=== PATIENT | male | born 1985 | race African-American/Black ===

== ENCOUNTER 2017-06-30 13:17 | Emergency (ER) | payer BC, SELFPAY ==
--- NOTE | 2017-06-30 14:08 | RAD ---
RIGHT FINGER 3 VIEWS: Date: 06/30/17 HISTORY: Injury, right finger pain. FINDINGS/IMPRESSION: There is a healed fracture of the distal phalanx. No acute fracture or dislocation is seen. POS: OFF
== END 2017-06-30 14:30 | disposition home or self-care (01) ==
LOC: ERS 13:17
DX: L03.011 Cellulitis of right finger (principal)
CPT/HCPCS: 10060; 87070; 87076; 87205

== ENCOUNTER 2018-02-06 17:59 | Inpatient (IN) | payer BC, SELFPAY ==
[~2018-02-06 17:59] MED LIST: ISOVUE-370 76%-LOCM 1 ML ONE
[2018-02-06] MEDS ORDERED: HYDROcodone/Acetaminophen 5/325 mg Tablet ONE (18:56)
[2018-02-06 18:57] LABS: Hemoglobin 13.7 g/dL (14.0-18.0); Mean Corpuscular HGB CONC 32.6 g/dL (32.0-36.0); Mean Corpuscular Hemoglobin 32.2 pg (27.0-31.0); Mean Corpuscular Volume 98.5 fL (78.0-98.0); Mean Platelet Volume 7.7 fL (7.4-10.4); Platelet Count 173 thou/uL (130-400); RBC Distribution Width 10.7 % (11.5-14.5); Red Blood Cell (RBC) Count 4.25 mill/uL (4.70-6.10); White Blood Cell (WBC) Count 8.6 thou/uL (4.8-10.8)
[2018-02-06 19:17] LABS: Lymphocytes 6 % (21-51); MDiff Complete? YES; Monocytes 2 % (0-10); Neutrophil 92 % (42-75); PLT Morphology Comment Appears Adequate
[2018-02-06 19:19] LABS: ALT (SGPT) 13 U/L (8-55); AST (SGOT) 16 U/L (5-34); Albumin 4.1 g/dL (3.5-5.0); Alkaline Phosphatase 78 U/L (40-150); Anion Gap 12 mmol/L (10-20); BUN (Urea Nitrogen) 11 mg/dL (8.9-20.6); Bilirubin, Total 0.8 mg/dL (0.2-1.2); Calc. Creatinine Clearance 0 mL/min (70-130); Calcium 9.3 mg/dL (7.8-10.44); Carbon Dioxide 25 mmol/L (22-29); Chloride 104 mmol/L (98-107); Estimated GFR-MDRD Greater than 90; Globulin 3.2 g/dL (2.4-3.5); Glucose 91 mg/dL (70-105); Potassium 3.8 mmol/L (3.5-5.1); Protein, Total 7.3 g/dL (6.0-8.3); Sodium 137 mmol/L (136-145)
[2018-02-06] MEDS ORDERED: Lidocaine 1% (PF) 30 ML VIAL ONE (19:51)
[2018-02-06] MEDS ORDERED: Piperacillin/Tazobactam 4.5 GM VIAL ONE (19:51)
--- NOTE | 2018-02-06 20:39 | CT ---
CT NECK PERFORMED WITH CONTRAST ENHANCEMENT: HISTORY: Right neck abscess. FINDINGS: The visualized brain parenchyma is unremarkable. The epiglottis and vocal cord regions are normal. The thyroid gland is normal in appearance. The lung apices are clear. The parapharyngeal spaces and the tonsillar regions appear unremarkable. There is some air density seen deep to the angle of the right mandible. I believe this is related to the injection, as there is some air within the veins. There does appear to be some minimal air pres ent within the right subclavian vein. There is a superficial, thick-walled collection, measuring 2.3 x 4.1 cm in size. This is superficial and mainly deep to the right submandibular gland, not related to the submandibular gland. There is some evidence of dental disease within the right and left mandible region, but these changes appear r emote from this area, and I doubt these are related to underlying dental change. There is no air ass ociated with this thick-walled collection but, in this age group, abscess would still be the most lik ana consideration. IMPRESSION: Superficial, thick-walled, cystic collection in the superficial soft tissues, inferior to the right s urszula of the mandible, probably related to an abscess. POS: NATALIA
[2018-02-06] MEDS ORDERED: Morphine 4 MG/ML VIAL ONE (21:20)
[2018-02-06] MEDS ORDERED: Ondansetron HCl/PF 4 MG/2 ML Vial ONE (21:20)
[2018-02-06] MEDS ORDERED: Ketorolac Tromethamine 30 MG/ML VIAL ONE (22:36)
[2018-02-06] MEDS ORDERED: Ondansetron HCl/PF 4 MG/2 ML Vial IVP PRN (23:49)
[2018-02-06] MEDS ORDERED: Acetaminophen 325 MG TAB PO PRN (23:49)
[2018-02-06] MEDS ORDERED: Ondansetron ODT 4 MG TAB SL PRN (23:49)
[2018-02-06 23:51] VITALS: BMI 24.3
[2018-02-07] MEDS ORDERED: VANCOMYCIN IVPB PRN (01:32)
[2018-02-07] MEDS: Piperacillin/Tazobactam 3.375 GM in Sodium Chloride 0.9% 100 ML IVPB SCH ×3 (05:09→17:07)
[2018-02-07] MEDS: Vancomycin HCl 1 GM in Premix Bag 1 BAG IVPB SCH ×2 (08:18→20:28)
[2018-02-07 08:46] LABS: #Lymphocytes 1.1 thou/uL (1.20-3.40); #Monocytes 0.6 thou/uL (0.11-0.59); #Neutrophils 6.5 thou/uL (1.40-6.50); %Basophils 0.2 % (0.0-1.0); %Eosinophils 0.1 % (0.0-10.0); %Monocytes 7.4 % (0.0-10.0); %Neutrophils 79.4 % (42.0-75.0); Hemoglobin 12.3 g/dL (14.0-18.0); Mean Corpuscular HGB CONC 32.1 g/dL (32.0-36.0); Mean Corpuscular Hemoglobin 31.8 pg (27.0-31.0); Mean Corpuscular Volume 98.8 fL (78.0-98.0); Mean Platelet Volume 7.3 fL (7.4-10.4); Platelet Count 140 thou/uL (130-400); RBC Distribution Width 10.6 % (11.5-14.5); Red Blood Cell (RBC) Count 3.87 mill/uL (4.70-6.10); White Blood Cell (WBC) Count 8.1 thou/uL (4.8-10.8)
[2018-02-07 09:01] LABS: Anion Gap 8 mmol/L (10-20); BUN (Urea Nitrogen) 7 mg/dL (8.9-20.6); Calc. Creatinine Clearance 106 mL/min (70-130); Calcium 8.4 mg/dL (7.8-10.44); Carbon Dioxide 25 mmol/L (22-29); Chloride 107 mmol/L (98-107); Estimated GFR-MDRD Greater than 90; Glucose 93 mg/dL (70-105); Potassium 4.1 mmol/L (3.5-5.1); Sodium 136 mmol/L (136-145)
[2018-02-07] MEDS: Ketorolac Tromethamine 30 MG/ML VIAL IVP PRN ×2 (09:40→18:23)
[2018-02-07] MEDS: Dextrose 5 %-0.45 % NaCl 1,000 ML IV SCH ×3 (11:52→20:35)
[2018-02-07] MEDS ORDERED: Lidocaine 1% w/Epinephrine 1:100K 30 ML VIAL NERVE BLCK SCH (12:15)
[2018-02-07] MEDS ORDERED: Lidocaine 1% w/Epinephrine 1:100K 20 ML VIAL NERVE BLCK SCH (12:45)
[2018-02-07] MEDS ORDERED: Morphine 4 MG/ML VIAL IV SCH (13:30)
[2018-02-07] MEDS ORDERED: Ketorolac Tromethamine 30 MG/ML VIAL IVP SCH (13:30)
--- NOTE | 2018-02-07 17:59 | CON ---
DATE OF CONSULTATION: 02/07/2018 CHIEF COMPLAINT: I am seeing Mr. Armenta in consultation at the request of Dr. Luong and Dr. Pantoja for evaluation and treatment of a neck abscess. HISTORY OF PRESENT ILLNESS: The patient is a 32-year-old man who has had about a 4- to 5-day history of progressively worsening right-sided neck swelling and pain. He was having fever and presented to the Emergency Department where a CT scan showed evidence of an abscess. An attempted aspiration was not very successful as far as alleviating the problem and given his tachycardia and fever , the patient was admitted to the telemetry unit. He has been placed on vancomycin and Zosyn. He complains of pain and swelling. He also says it feels like the throat is swelling a little bit. He denies any dentalgia. He denies any problems breathing. PAST MEDICAL HISTORY: He denies diabetes or history of recurring skin infections. PAST SURGICAL HISTORY: No ear, nose or throat surgery of any concern. SOCIAL HISTORY: He currently is employed at [employer] working on the line of [employer]. REVIEW OF SYSTEMS: He does have fevers and chills. He complains of neck pain and some pain with swallowing, but he denies any trismus. He denies any hoarseness. Respiratory: He denies cough or shortness of breath. Cardiac: He does complain of some tachycardia and palpitations, but no chest pain. Gastrointestinal: He denies vomiting or diarrhea. Hematologic: He denies easy bruising or bleeding or lymphadenopathy. Neurologic: He denies dizziness or vision changes. PHYSICAL EXAMINATION: GENERAL: The patient is a healthy-appearing man in no distress that is in good spirits. He speaks in [place]. HEENT: Head is normocephalic. The parotid glands are smooth. He does have normal submandibular glands. There is normal facial tone, although he does have a little swelling over the right jaw line. External ears and nose show no scars, lesions or masses. Ear canals are clear. Eardrums are within normal limits with no evidence of effusions or retraction pockets. Rhinoscopy reveals no pus or polyps. Turbinates and septum are normal. Oral cavity, lips are in good condition. He has got no trismus. Mucosa is pink and moist. He does have very poor dentition with multiple caries and some granulation tissue at the base of the nearly eroded teeth. I see or feel no palpable evidence of odontogenic abscess or submandibular space edema or swelling. The tongue is normal. The hard and soft palate are normal. Oropharynx mucosa is pink and moist and symmetrical. The uvula is not edematous. There is no erythema or exudates. NECK: He has a woody induration of the right submandibular region extending to the lower neck and posteriorly. He has got a large loculated area with a little bit of purulence able to be expressed out of the central necrotic portion. The trachea is midline. There is no stridor. LYMPHATIC: No cervical lymphadenopathy. LUNGS: Clear to auscultation bilaterally. HEART: regular rhythm, but he is tachycardic. IMAGING DATA: I reviewed the CT scan, which was performed in the neck yesterday and it does show multiloculated collection of inflammation and phlegmon and abscess in that right subcutaneous area. The airway otherwise is unremarkable. PROCEDURE NOTE: After discussing risks, benefits and my thoughts, the patient agreed to an incision and drainage of the abscess on the neck. Risks including infection, bleeding and need for further surgery and recurrence were discussed and the patient gave informed consent. The area was cleaned with alcohol and then he was injected with 20 mL of 1% lidocaine with 1:100,000 epinephrine. I allowed that to set for several minutes. I then used a 15 blade to make a linear incision overlying the fluctuant area in the neck and then it was about 2 cm in length. I then opened it up with a pair of hemostats and I expressed a considerable amount of pus. A sample was taken for culture and sensitivity. I then packed the wound with quarter inch iodoform gauze and then the patient had a wrapping of Kerlix gauze placed around for oozing. He tolerated the procedure well. IMPRESSION: Right-sided superficial neck abscess. PLAN: I agree with continuation of vancomycin and Zosyn. Wound care consult was initiated. Recommend IV antibiotics until systemic symptoms are improved. The patient may follow up with me as an outpatient as needed. KAREN
--- NOTE | 2018-02-07 21:05 | CON ---
DATE OF CONSULTATION: 02/07/2018 CONSULTING PHYSICIAN: Dr. Junior with the Hospitalist Service. HISTORY OF PRESENT ILLNESS: This is a 32-year-old male who reports a recent ingrown hair to the righ t neck region, which he noticed when he was shaving one day. The patient attempted multiple times to remove this ingrown hair, but was unsuccessful and subsequently developed swelling in the right neck region in the area of this ingrown hair. The patient denies any recent history of dental pain or pr oblems with the teeth or in the mouth. PAST MEDICAL HISTORY: None. PAST SURGICAL HISTORY: Negative. HOME MEDICATIONS: None. CURRENT MEDICINES IN THE HOSPITAL FROM AN ANTIBIOTIC PERSPECTIVE: Zosyn, vancomycin. ALLERGIES: No known drug allergies. REVIEW OF SYSTEMS: The patient denies any dental and mouth pain. The patient reports discomfort to the right neck region, an area of recent incision and drainage. PHYSICAL EXAMINATION: VITAL SIGNS: Blood pressure 121/68, temperature 98.6, heart rate 94, 97% oxygen saturation on room a ir. GENERAL: Alert and oriented x3, in no apparent distress. HEAD AND NECK: The patient has a gauze wrap to the neck and on retraction, there is an incision and drainage site in the right neck region with packing gauze tail from the area with purulosanguinous di scharge on the gauze and on the neck in the area. On examination of the oral cavity, the patient johnston s have a dental decay throughout the mouth with some retained roots in the number 29 region in the felipe ttom right. There is no vestibular erythema or edema on the buccal throughout the maxilla or mandibl e bilaterally. The floor of mouth is soft bilaterally without any signs of erythema or edema. The o ropharynx is within normal limits. Other than the chronic decay throughout the mouth, the oral exam is basically normal. LABORATORY DATA: CBC showed a white blood cell count of 8.1 down from 8.6 yesterday. Hemoglobin is 12.3, platelets of 140,000. On chemistry studies, glucose is 93. IMAGING: CT scan of the neck shows a fluid collection in the superficial tissues of the right neck, which appears to communicate to the epidermal region. There are no noted signs of tracking of the ab scess up towards the mandible. The abscess or fluid collection appears isolated to the subcutaneous and cutaneous structures of the right neck region. ASSESSMENT: Skin infection and abscess of the right neck secondary to ingrown hair. PLAN: 1. Dr. Sanchez with the Otolaryngology Service already performed a bedside incision and drainage and I agree with his assessment that this is a skin infection and not related to any odontogenic origin. I will defer continued care to Dr. Sanchez and the Hospitalist Service for continued medical management of the skin abscess. 2. I have counseled the patient on his widespread dental decay and the chance that this dental decay and signs of periapical abscesses throughout the jaw can lead to similar presentations of neck absce sses and escalation from their current subclinical statuses. I have recommended that the patient see k care with us on an outpatient basis for further evaluation and management of his dental decay and r emoval of any nonsalvageable teeth, particularly those with signs on the CT scan of periapical radiol ucencies consistent with periapical granulomas or periapical abscesses.
--- NOTE | 2018-02-07 21:42 | PDOC.PN ---
- Subjective Encounter Start Date: 02/07/18 Encounter Start Time: 10:00 Patient seen and examined for Rt neck abscess. No fever/chills. No new complaints. No overnight events - Objective Resuscitation Status: Resuscitation Status FULL:Full Resuscitation MAR Reviewed: Yes Vital Signs & Weight: Vital Signs (12 hours) Temp Pulse Resp BP Pulse Ox 02/07/18 20:30 100.2 F H 94 16 111/62 96 02/07/18 17:10 98 F 91 16 113/54 L 96 02/07/18 11:42 98.6 F 94 14 121/68 97 Weight Weight 155 lb 4.8 oz I&O: 02/06/18 02/07/18 02/08/18 06:59 06:59 06:59 Intake Total 1440 Balance 1440 Result Diagrams: 02/07/18 08:31 02/07/18 08:31 EKG Reviewed by me: Yes (Tele SR) Phys Exam - Physical Examination Constitutional: NAD HEENT: oral pharynx no lesions Rt neck abscess + Respiratory: no wheezing, no rhonchi Cardiovascular: RRR, no rub Gastrointestinal: soft, non-tender, positive bowel sounds Musculoskeletal: no edema Neurological: moves all 4 limbs Dx/Plan - Plan DVT proph w/SCDs IMPRESSION: 1. Sepsis due to Rt neck abscess 2. Swallow diff due to pain 3. Dental decay PLAN: Await ENT/Oral surgeon input Await cultures Cont Vanc/Zosyn Cont current meds as below Review of Systems - Review of Systems Respiratory: negative: Cough, Dry, Shortness of Breath, Hemoptysis, SOB with Excertion, Pleuritic Pain, Sputum, Wheezing Cardiovascular: negative: chest pain, palpitations, orthopnea, paroxysmal nocturnal dyspnea, edema, light headedness, other - Medications/Allergies Allergies/Adverse Reactions: Allergies Allergy/AdvReac Type Severity Reaction Status Date / Time No Known Drug Allergies Allergy Unverified 02/09/14 16:16 Medications: Current Medications Piperacillin Sod/Tazobactam (Sod 3.375 gm/ Sodium Chloride) 100 mls @ 200 mls/ hr IVPB Q6HR [facility] Last Admin: 02/07/18 17:07 Dose: 100 mls Vancomycin HCl 1 gm/ Device 200 mls @ 200 mls/hr IVPB Q12HR [facility] Last Admin: 02/07/18 20:28 Dose: 200 mls Dextrose/Sodium Chloride (D5 1/2 Ns) 1,000 mls @ 120 mls/hr IV .Q8H20M [facility] Last Admin: 02/07/18 20:35 Dose: 1,000 mls Ketorolac Tromethamine (Toradol) 15 mg IVP Q6H PRN PRN Reason: PAIN 4-6 Stop: 02/08/18 05:45 Last Admin: 02/07/18 18:23 Dose: 15 mg Lidocaine/Epinephrine (Xylocaine 1% W/ Epi 1:100k) 20 ml NERVE BLCK [facility] Miscellaneous Medication (Pharmacy To Dose) 1 each IVPB PRN PRN PRN Reason: SSSI Ondansetron HCl (Zofran) 4 mg IVP Q6H PRN PRN Reason: Nausea/Vomiting Stop: 02/12/18 11:00 Last Admin: 02/07/18 05:13 Dose: 4 mg Sodium Chloride (Flush - Normal Saline) 10 ml IVF Q12HR [facility] Last Admin: 02/07/18 20:29 Dose: 10 ml Sodium Chloride (Flush - Normal Saline) 10 ml IVF PRN PRN PRN Reason: Saline Flush
[2018-02-07] MEDS ORDERED: Acetaminophen 650 MG/20.3 ML UDCUP PO PRN (21:43)
[2018-02-08] MEDS: Piperacillin/Tazobactam 3.375 GM in Sodium Chloride 0.9% 100 ML IVPB SCH ×3 (00:19→12:48)
[2018-02-08] MEDS: Ketorolac Tromethamine 30 MG/ML VIAL IVP PRN ×2 (00:20→05:31)
--- NOTE | 2018-02-08 08:55 | PDOC.PN ---
- Subjective Encounter Start Date: 02/08/18 Encounter Start Time: 08:53 Subjective: sore throat, some dysphagia - Objective Resuscitation Status: Resuscitation Status FULL:Full Resuscitation MAR Reviewed: Yes Vital Signs & Weight: Vital Signs (12 hours) Temp Pulse Resp BP Pulse Ox 02/08/18 08:00 68 18 112/67 97 02/08/18 03:46 98.0 F 75 125/69 97 02/08/18 00:00 100.8 F H 84 18 125/70 96 Weight Weight 155 lb 4.8 oz I&O: 02/07/18 02/08/18 02/09/18 06:59 06:59 06:59 Intake Total 2940 Balance 2940 Result Diagrams: 02/07/18 08:31 02/07/18 08:31 Phys Exam - Physical Examination Neck: no JVD bandagedn , no stridor Respiratory: clear to auscultation bilateral Cardiovascular: RRR, no significant murmur Gastrointestinal: soft, positive bowel sounds Musculoskeletal: edema present Dx/Plan (1) Abscess, neck Code(s): L02.11 - CUTANEOUS ABSCESS OF NECK Status: Acute Comment: post I&D (2) Dysphagia as late effect of cerebrovascular accident (CVA) Code(s): I69.391 - DYSPHAGIA FOLLOWING CEREBRAL INFARCTION Status: Acute - Plan cont wound care -: await C&S results, con antibx -: ENT consult pending * .
[2018-02-08] MEDS: Chlorhexidine Gluconate 15 ML UDCUP SSP SCH ×2 (09:25→15:43)
[2018-02-08 12:39] LABS: Vancomycin, Trough 2.6 ug/mL
[2018-02-08] MEDS: Dextrose 5 %-0.45 % NaCl 1,000 ML IV SCH (12:52)
[2018-02-08] MEDS: Vancomycin HCl 1 GM in Premix Bag 1 BAG IVPB SCH (12:52)
[2018-02-08] MEDS ORDERED: Vancomycin HCl 1.75 GM in Sodium Chloride 0.9% 500 ML IVPB SCH (13:00)
--- NOTE | 2018-02-08 13:40 | HP ---
PRIMARY CARE PHYSICIAN: Dr. Gómez. CODE STATUS: FULL CODE. TIME OF EVALUATION: 11:40 p.m. CHIEF COMPLAINT: For this patient is swelling on the right submandibular area. HISTORY OF PRESENT ILLNESS: This is a 32 years old male patient, no significant past medical history , came to the hospital after having a swelling in the right submandibular area, with no clear trigger s, no alleviating factors, patient also developed fever of 100.7 and paian that was rated as moderate , symptoms started gradually getting worse for the past 4-5 days. REVIEW OF SYSTEMS: Constitutional: No fever, chills, generalized weakness. Respiratory: No cough, sputum production, or shortness of breath. Cardiovascular: No chest pain, palpitation. Gastrointe stinal: No nausea, no vomiting, diarrhea or abdominal pain. RAT CULTURIST: No dizziness, headache, or feelin g lightheaded. Genitourinary: No burning with urination. Extremities: No leg swelling. Skin: Th e patient has a significant swelling on the right submandibular area with area of induration of about 2 x 2 inches, very painful. All other systems were reviewed and negative except for the findings me ntioned above. PAST MEDICAL HISTORY: Positive for no medical problems. PAST SURGICAL HISTORY: No surgical history. PSYCHIATRIC HISTORY: No previous psych history. SOCIAL HISTORY: No alcohol, no drugs. No smoking history. ALLERGIES: No known drug allergies. REPORTED MEDICATIONS: None. PHYSICAL EXAMINATION: VITAL SIGNS: At presentation, blood pressure 130/89 with heart rate 113, respiratory rate was 19, te mperature 100.97, oxygen saturation 98 on room air. GENERAL APPEARANCE: The patient is alert, oriented, no acute distress. HEENT: Eyes, normal conjunctivae. Moist oral mucosa. Anicteric. NECK: No JVD. RESPIRATORY: Bilateral air entry. No rales or wheezes. Symmetric expansion. CARDIOVASCULAR: Normal rate, regular rhythm. No murmurs, no gallop, no edema. ABDOMEN: Soft, normal bowel sounds. MUSCULOSKELETAL: Baseline strength. No tenderness. SKIN: Warm and intact. No pallor or rash except for the right submandibular area, where there is an area of induration and fraction of 2 x 2 inches, there is draining mucopurulent drainage. The swell ing is also extending to the left side in the submandibular area. Peripheral pulses are present. Ca pillary refill seems to be intact. NEUROLOGIC: No evidence of any new focal weakness. Baseline speech. Cranial nerves seems to be int act. PSYCHIATRIC: The patient is in good mood, no anxiety, oriented, optimal judgement. Soft tissue neck CT was done. Patient has superficial thick walled cystic collection in the superfic ial soft tissue inferior to the right side of the mandible, probably related to an abscess. LABORATORY DATA: White count 8.6, hemoglobin 13.7, MCV 98.5, platelet count of 173. Chemistry: Sod ium 137, potassium 3.8, chloride 104, carbon dioxide 25, anion gap , BUN 11, creatinine 1.0, GFR greater than 90, glucose 91. Lactic acid 0.6, calcium 9.6, bilirubin 0.8, AST 16, ALT 13, alkaline phosphatase 78. C-reactive protein 7.0, serum total protein 7.3, albumin 4.1, globulin 3.2, albumin globulin ratio is 1.3. ASSESSMENT AND PLAN: The patient will be placed in the hospital with following medical problems. 1. Sepsis. The patient presented with fever, tachycardia, abscess in the right submandibular area, the patient will be placed on broad-spectrum antibiotics. The patient will receive incision and inci eduin in the ER, we will monitor, we will adjust treatment as per patient's clinical course, wound cul ture has been sent after incision and drainage, ID has been consulted from ER. We will follow recomm endations. 2. Right submandibular abscess, treatment as above. 3. Deep venous thrombosis prophylaxis. The patient ambulates.
[2018-02-08 16:23] VITALS: BP 113/62; TEMP 98.7
--- NOTE | 2018-02-08 17:52 | DIS ---
DATE OF ADMISSION: 02/06/2018 DATE OF DISCHARGE: 02/08/2018 TRANSFER OF CARE DISCHARGE DISPOSITION: Home, [place] call admission for [facility]. FINAL DIAGNOSES: Cutaneous abscess of neck, dysphagia. DISCHARGE MEDICATIONS: Cleocin 300 mg p.o. q.6. hours x30 doses. PENDING AT TIME OF DISCHARGE: Nothing. CODE STATUS: FULL. HOSPITAL COURSE: [facility] for a swelling in his right submandibular area. CBC showed a minimal anemia of 13.7, a mild shahid trophilia with an absolute count of 8.6, platelet count of 173,000. Comp metabolic profile was li l. Lactic acid was normal. The patient was placed in the hospital. Dr. Kenny Sanchez was consulted. The CT showed it to be in the right subcutaneous area. It was incised and drained at the bedside. T he cultures grew Staph aureus, pansensitive. Followup by Dr. Erwin was done today. He recommended d ischarging the patient on oral Cleocin to follow up with Dr. Kenny Sanchez tomorrow in his office. The patient received wound care. He is doing well at the time of discharge. He will eventually need a P CP.
--- NOTE | 2018-02-08 19:53 | CON ---
DATE OF CONSULTATION: 02/08/2018 SUBJECTIVE: Mr. Armenta was seen in the emergency room on 02/06/2018 with a submandibular abscess. He was seen in consult by Dr. Sanchez over the weekend who drained the abscess in the emergency departmen t and then he was admitted for IV antibiotics. He has been in there since. Today Mr. Armenta appears to be doing well. His vital signs are stable. He has no evidence of any kind of fever. Culture cam e back and showed that it was a Staph infection sensitive to most antibiotics including clindamycin. He was initially having some difficulty or pain with swallowing, but he reports today that seems res olving and he feels much better. Wound care was consulted; however, has not yet changed the packing on the wound. They are waiting for a secondary ear, nose and throat consult. OBJECTIVE: Mr. Armenta is well-developed, well-nourished. He is in no acute distress today. His jaja l signs are continuing to be stable. He reports no difficulty swallowing. The right submandibular r egion shows still some packing secondary to I&D, but the wound does not look infected in any way. ASSESSMENT: Right submandibular abscess. PLAN: 1. Okay to discharge from ENT Service today. 2. Recommend wound care, clean and repack wound prior to discharge. 3. I spoke with Dr. Torre hospitalist who is in charge of Mr. Armenta and recommended the same to him that when he is discharged, he should follow up with Dr. Sanchez the next day for followup of the absce ss, also to be discharged with antibiotic that he is sensitive to the culture and recommended clindam ycin.
[2018-02-08] MEDS ORDERED: Vancomycin HCl 1.5 GM in Sodium Chloride 0.9% 250 ML 300 ML IVPB SCH (21:00)
== END 2018-02-08 19:24 | disposition home or self-care (01) | DRG 872 ==
LOC: ERS 17:59 → 2NO 20:14
PROVIDERS: ADMIT Hospitalist; ATTEND Hospitalist
PROC: 0H94XZZ Drainage of Neck Skin, External Approach (ICD-10-PCS; principal; 2018-02-06)
DX: A41.9 Sepsis, unspecified organism (principal); L02.11 Cutaneous abscess of neck; K02.9 Dental caries, unspecified; I69.391 Dysphagia following cerebral infarction
CPT/HCPCS: 10060; 36415; 36416; 70491; 80048; 80053; 80202; 83605; 85025; 85652; 86140; 87040; 87070; 87077; 87186; 87205; 96361; 96365; 96367; 96375; J1885; J2001; J2270; J2405; J2543; J3370; J7050

== ENCOUNTER 2018-05-31 17:36 | Emergency (ER) | payer BC ==
[2018-05-31] MEDS ORDERED: Clindamycin 150 MG CAP ONE (18:25)
== END 2018-05-31 19:40 | disposition home or self-care (01) ==
LOC: SCSER 17:36
DX: K12.2 Cellulitis and abscess of mouth (principal)
CPT/HCPCS: 96365; J3370

== ENCOUNTER 2018-07-22 09:24 | Emergency (ER) | payer BC | END 2018-07-22 10:30 | disposition home or self-care (01) | LOC: SCSER 09:24 | DX: L03.211 Cellulitis of face (principal) | CPT/HCPCS: 99282 ==

== ENCOUNTER 2023-06-28 10:28 | Emergency (ER) | payer BC, SELFPAY ==
[2023-06-28] MEDS ORDERED: Famotidine 20 MG TAB ONE (11:03)
[2023-06-28] MEDS ORDERED: Lidocaine 2% Viscous 10 mL, Alum & Magn 30 mL SSW SCH (11:15)
[2023-06-28 11:23] LABS: #Eosinphils 0.2 thou/uL (0.0-0.7); #Monocytes 0.3 thou/uL (0.11-0.59); #Neutrophils 2.2 thou/uL (1.40-6.50); %Basophils 0.8 % (0.0-1.0); %Lymphocytes 25.8 % (21.0-51.0); %Neutrophils 59.4 % (42.0-75.0); Hematocrit 42.2 % (42.0-52.0); Hemoglobin 14.3 g/dL (14.0-18.0); Mean Corpuscular HGB CONC 33.9 g/dL (32.0-36.0); Mean Corpuscular Hemoglobin 35.3 pg (27.0-31.0); Mean Corpuscular Volume 104.2 fl (78.0-98.0); Mean Platelet Volume 9.5 fL (7.4-10.4); Platelet Count 223 10x3/uL (130-400); RBC Distribution Width 11.4 % (11.5-14.5); Red Blood Cell (RBC) Count 4.05 mill/uL (4.70-6.10); White Blood Cell (WBC) Count 3.6 10x3/uL (4.8-10.8)
[2023-06-28 11:48] LABS: ALT (SGPT) 50 U/L (8-55); AST (SGOT) 52 U/L (5-34); Albumin 4.3 g/dL (3.5-5.0); Alkaline Phosphatase 80 U/L (40-110); Anion Gap 14 mmol/L (10-20); BUN (Urea Nitrogen) 13 mg/dL (8.9-20.6); Calc. Creatinine Clearance 0 mL/min (70-130); Calcium 9.3 mg/dL (7.8-10.44); Carbon Dioxide 29 mmol/L (22-29); Chloride 100 mmol/L (98-107); Estimated GFR 68; Globulin 3.1 g/dL (2.4-3.5); Glucose 77 mg/dL (70-105); Lipase 31 U/L (8-78); Potassium 3.9 mmol/L (3.5-5.1); Protein, Total 7.4 g/dL (6.0-8.3); Sodium 139 mmol/L (136-145)
[2023-06-28 12:18] LABS: Bacteria/HPF None Seen HPF (None Seen); Bilirubin Negative (Negative); Blood, Urine 1+ (Negative); CAUTI Indications for Culture Fever or rigors; Clarity Clear (Clear); Glucose, Urine (Dipstick) Normal (Negative); Ketone, Urine Negative (Negative); Leukocyte Negative Leu/uL (Negative); Nitrite Negative (Negative); Protein, Urine (Dipstick) 20 mg/dL (Neg-Trace); RBC/HPF 0-3 HPF (0-3); Specific Gravity, Urine 1.031 (1.002-1.036); Squamous Epithelial 0-3 HPF (0-3); Urobilinogen 3 mg/dL (Less than 2); WBC/HPF 0-3 HPF (0-3); pH, Urine 6.5 (5.0-9.0)
[2023-06-28 12:19] LABS: Urine Culture Reflex No No
== END 2023-06-28 13:05 | disposition home or self-care (01) ==
LOC: ERS 10:28
DX: K29.00 Acute gastritis without bleeding (principal)
CPT/HCPCS: 36415; 80053; 81001; 83690; 85025; 99284

== ENCOUNTER 2024-01-30 02:10 | Emergency (ER) | payer SELFPAY | END 2024-01-30 04:07 | disposition left against medical advice (07) | LOC: ERS 02:10 | DX: Z53.21 Procedure and treatment not carried out due to patient leaving prior to being seen by health care provider (principal) ==